=== PATIENT | female | born 1950 | race African-American/Black ===

== ENCOUNTER 2017-06-03 13:59 | Emergency (ER) | payer OTHER ==
[~2017-06-03] VITALS: Ht 162.6 cm; Wt 93.7 kg
[~2017-06-03 13:59] MED LIST: ADVAIR 250/501 DISK IH; ADVAIR HFA120 INHALA IH; ALBUTEROL2.5 MG/3 M IH; ANORO ELLIPTA1 EACH IH; ASPIR 8181 M1 PO; ASPIRIN81 M1 PO; ASPIRIN81 M2 PO; Aspirin Ec PO; BACLOFEN10 MG PO; BENTYL20 MG PO; CARAFATE1 GM PO; CEFTIN250 MG PO; CELEXA20 MG PO; CITALOPRAM HBR40 MG PO; CLONAZEPAM0.5 MG PO; CLONAZEPAM1 MG PO; DAILY VITE1 EAC1 PO; DALIRESP500 MCG PO; ENDOCET 5-3251 EACH PO; ESCITALOPRAM OX10 MG PO; ESCITALOPRAM OX20 MG PO; FERROCITE324 MG PO; FERROUS SULFAT324 M1 PO; FLONASE16 G1 BOTH NARES; FLUTICASONE BOTH NARES; GABAPENTIN300 MG PO; GABAPENTIN400 MG PO; HABITROL,NICODE14 MG PO; HYDROCHLOROTHIA25 MG PO; HYDROCODON-ACE1 EA12 PO; KLONOPIN1 MG PO; LASIX40 MG PO; LEXAPRO20 MG PO; LIDOCAINE700 MG TD; LIDODERM 5% P1 PATCH TD; LIDODERM700 MG TP; LITHIUM CARBON150 MG PO; LITHIUM CARBON300 M1 PO; MILK OF MAGN PO; MIRALAX17 GM PO; MIRTAZAPINE30 MG PO; MULTI-DAY VITA1 EACH PO; NAPROXEN500 MG PO; NEURONTIN300 MG PO; NEXIUM40 MG PO; NICODERM CQ1 EACH TD; NIZORAL 2% CREA15 GM PO; OXYCODONE HCL5 M1 PO; PANTOPRAZOLE SO40 MG PO; PERCOCET 5/31 TABLET PO; PERCOCET 7.51 TABLET PO; PRAVASTATIN SOD20 MG PO; PREDNISONE10 MG PO; PREDNISONE20 MG PO; PROTONIX40 MG PO; PROVENTIL,2.5 MG/0.5 IH; PROVENTIL,2.5 MG/3 M IH; REMERON30 M2 PO; Remove Lidoderm Patch TD; SPIRIVA1 INHALATI IH; SULINDAC150 MG PO; TEMAZEPAM15 MG PO; TIZANIDINE HCL4 M1 PO; TIZANIDINE HCL4 MG PO; TRAZODONE HCL100 MG PO; TRAZODONE HCL150 MG PO; TUDORZA PRESS400 MCG IH; VENTOLIN HFA18 GM; VENTOLIN HFA18 GM IH; ZANAFLEX4 M1 PO; ZESTORETIC,P1 TABLE2 PO; ZOLOFT25 MG PO; [UNRECOGNIZED DRUG - OTHER] BOTH NARES
[2017-06-03 16:21] LABS: HEMATOCRIT 43.2 % (36.0-46.0); MCH 26.5 PG (29.0-34.0); MCHC 30.8 G/DL (30.0-36.0); MCV 86.2 FL (83-99); RBC DIS.WIDTH-CV 14.2 % (11.8-14.6); RBC DIS.WIDTH-SD 44.8 % (39-53); RED BLOOD COUNT 5.01 M/uL (3.80-5.20); WHITE BLOOD COUNT 7.5 K/uL (4.1-10.2)
[2017-06-03 16:29] LABS: CHLORIDE 98 mEq/L (99-109); POTASSIUM 3.7 mEq/L (3.7-5.4); SODIUM 139 mEq/L (136-147)
[2017-06-03 16:31] LABS: GLUCOSE 92 mg/dL (70-99)
[2017-06-03 16:33] LABS: ANION GAP 10 MEQ/L (2-14); TOTAL BILIRUBIN 0.3 mg/dL (0.0-1.0)
[2017-06-03 16:35] LABS: ALKALINE PHOSPHATASE 86 IU/L (3-129); GFR ESTIMATE (CALCULATED) > 59 mL/min/
[2017-06-03 16:36] LABS: UREA NITROGEN (BUN) 12 mg/dL (9-23)
[2017-06-03 16:38] LABS: LIPASE 4 U/L (1.0-51.0)
[2017-06-03 16:49] LABS: ADD MIUA? NO; BILIRUBIN NEGATIVE; BLOOD NEGATIVE; COLOR STRAW ((YELLOW)); GLUCOSE (STRIP) NEGATIVE; KETONES NEGATIVE; LEUKOCYTES NEGATIVE; NITRITE NEGATIVE; PROTEIN (STRIP) NEGATIVE; SPECIFIC GRAVITY 1.008 (1.000-1.030); UROBILINOGEN 0.2 MG/DL (0.2-1.0)
[2017-06-03 17:11] LABS: PLAT.SUFFICIENCY ADEQUATE; PLATELET CLUMPS PRESENT - PLATELET COUNT APPEARS ADQ.
[2017-06-03 17:16] LABS: PLATELET COUNT UNABLE TO REPORT K/uL (156-360)
[2017-06-03] MEDS ORDERED: PREDNISONE10 MG PO (17:43)
[2017-06-03] MEDS ORDERED: FLEXERIL10 MG PO (17:43)
[2017-06-03 18:04] VITALS: BP 159/98
== END 2017-06-03 18:09 | disposition home or self-care (01) ==
LOC: EME 13:59
PROVIDERS: Physician Assistant
DX: M54.9 Dorsalgia, unspecified (principal); J44.9 Chronic obstructive pulmonary disease, unspecified; K21.9 Gastro-esophageal reflux disease without esophagitis; I10 Essential (primary) hypertension; Z85.43 Personal history of malignant neoplasm of ovary; F17.200 Nicotine dependence, unspecified, uncomplicated
CPT/HCPCS: 74176; 80053; 81003; 83690; 85027; 99281; 99284; J1100; J3010

== ENCOUNTER 2017-07-15 14:59 | Emergency (ER) | payer OTHER ==
[~2017-07-15] VITALS: Ht 162.6 cm; Wt 94.0 kg
[~2017-07-15 14:59] MED LIST changes: +FLEXERIL10 MG PO
[2017-07-15 15:43] LABS: HEMATOCRIT 42.5 % (36.0-46.0); MCHC 30.6 G/DL (30.0-36.0); MCV 88.2 FL (83-99); MEAN PLAT.VOLUME 10.8 uM^3 (9.5-12.4); PLATELET COUNT 196 K/uL (156-360); RBC DIS.WIDTH-CV 13.7 % (11.8-14.6); RBC DIS.WIDTH-SD 44.3 % (39-53); RED BLOOD COUNT 4.82 M/uL (3.80-5.20); WHITE BLOOD COUNT 8.5 K/uL (4.1-10.2)
[2017-07-15 15:52] LABS: CHLORIDE 102 mEq/L (99-109); POTASSIUM 4.1 mEq/L (3.7-5.4); SODIUM 143 mEq/L (136-147)
[2017-07-15 15:54] LABS: GLUCOSE 91 mg/dL (70-99)
[2017-07-15 15:55] LABS: ANION GAP 13 MEQ/L (2-14)
[2017-07-15 15:58] LABS: GFR ESTIMATE (CALCULATED) > 59 mL/min/; UREA NITROGEN (BUN) 12 mg/dL (9-23)
[2017-07-15 16:05] LABS: TROP-I INTERPRETATION NEGATIVE; TROPONIN-I < 0.01 ng/mL (0.0-0.30)
[2017-07-15] MEDS ORDERED: PREDNISONE20 MG PO (19:42)
[2017-07-15 20:34] VITALS: BP 119/74
== END 2017-07-15 20:36 | disposition home or self-care (01) ==
LOC: EME 14:59
DX: J44.1 Chronic obstructive pulmonary disease with (acute) exacerbation (principal); R00.2 Palpitations; Z99.81 Dependence on supplemental oxygen; F17.200 Nicotine dependence, unspecified, uncomplicated; I10 Essential (primary) hypertension; F32.9 Major depressive disorder, single episode, unspecified; K21.9 Gastro-esophageal reflux disease without esophagitis; F41.9 Anxiety disorder, unspecified; Z85.43 Personal history of malignant neoplasm of ovary
CPT/HCPCS: 71020; 71275; 80048; 84484; 85027; 85379; 93005; 94640; 99281; 99285; J7512

== ENCOUNTER 2017-07-23 13:41 | Emergency (ER) | payer OTHER ==
[~2017-07-23] VITALS: Ht 162.6 cm; Wt 94.5 kg
[2017-07-23] MEDS ORDERED: PREDNISONE20 MG PO (15:29)
[2017-07-23 16:33] VITALS: BP 130/70
== END 2017-07-23 16:33 | disposition home or self-care (01) ==
LOC: EME 13:41
DX: J44.1 Chronic obstructive pulmonary disease with (acute) exacerbation (principal); R07.89 Other chest pain; J02.9 Acute pharyngitis, unspecified; N63.0 Unspecified lump in unspecified breast; K21.9 Gastro-esophageal reflux disease without esophagitis; I10 Essential (primary) hypertension; F32.9 Major depressive disorder, single episode, unspecified; F41.9 Anxiety disorder, unspecified; Z85.43 Personal history of malignant neoplasm of ovary; Z99.81 Dependence on supplemental oxygen; F17.200 Nicotine dependence, unspecified, uncomplicated; F10.10 Alcohol abuse, uncomplicated; Z79.891 Long term (current) use of opiate analgesic
CPT/HCPCS: 94640; 99281; 99284; J7512

== ENCOUNTER 2017-08-18 21:37 | Inpatient (IN) | payer OTHER ==
[~2017-08-18] VITALS: Ht 162.6 cm; Wt 99.6 kg
[~2017-08-18 21:37] MED LIST changes: -GABAPENTIN400 MG PO
[2017-08-18 22:49] LABS: MCH 26.9 PG (29.0-34.0); MEAN PLAT.VOLUME 10.5 uM^3 (9.5-12.4); PLATELET COUNT 184 K/uL (156-360); RBC DIS.WIDTH-CV 13.9 % (11.8-14.6); RBC DIS.WIDTH-SD 44.3 % (39-53); RED BLOOD COUNT 4.83 M/uL (3.80-5.20); WHITE BLOOD COUNT 7.5 K/uL (4.1-10.2)
[2017-08-18 23:00] LABS: CHLORIDE 100 mEq/L (99-109); POTASSIUM 3.5 mEq/L (3.7-5.4); SODIUM 140 mEq/L (136-147)
[2017-08-18 23:02] LABS: GLUCOSE 102 mg/dL (70-99)
[2017-08-18 23:03] LABS: ANION GAP 9 MEQ/L (2-14)
[2017-08-18 23:06] LABS: GFR ESTIMATE (CALCULATED) 53 mL/min/
[2017-08-18 23:07] LABS: UREA NITROGEN (BUN) 13 mg/dL (9-23)
[2017-08-19] MEDS ORDERED: ASPIR 8181 M1 PO (02:32)
[2017-08-19] MEDS ORDERED: BACLOFEN10 MG PO (02:34)
[2017-08-19] MEDS ORDERED: BUSPAR10 MG PO (02:36)
[2017-08-19] MEDS ORDERED: DALIRESP500 MCG PO (02:38)
[2017-08-19] MEDS ORDERED: LASIX20 MG PO (02:40)
[2017-08-19] MEDS ORDERED: CYMBALTA60 MG PO (02:45)
[2017-08-19] MEDS ORDERED: COLACE100 MG PO (02:45)
[2017-08-19] MEDS ORDERED: NUEDEXTA 20-101 EACH PO (02:46)
[2017-08-19] MEDS ORDERED: OXYCONTIN10 MG PO (02:46)
[2017-08-19] MEDS ORDERED: FEROSUL325 MG PO (02:46)
[2017-08-19] MEDS ORDERED: TRAZODONE HCL50 MG PO ×2 (02:47→02:48)
[2017-08-19] MEDS ORDERED: VITAMIN D31000 UNIT PO (02:49)
[2017-08-19 05:17] VITALS: BP 113/60
[2017-08-19 06:44] LABS: Estimated Average Glucose 128 mg/dL (70-123); HEMOGLOBIN A1c (GLYCOHEMOGLOB) 6.1 % HGB (Below 5.7)
[2017-08-19 07:28] LABS: ALKALINE PHOSPHATASE 62 IU/L (3-129); HDL CHOLESTEROL 47 MG/DL (Desirable>=50); LDL CHOLESTEROL 91 mg/dL (Desirable<100); NON-HDL CHOLESTEROL 112 mg/dL (Desirable<160); TOTAL BILIRUBIN 0.3 MG/DL (0.0-1.0); TOTAL CHOLESTEROL 159 mg/dL (Desirable<200); TRIGLYCERIDES 104 MG/DL (Normal: <150)
[2017-08-19 07:32] VITALS: BP 111/71
[2017-08-19] MEDS ORDERED: OXYCODONE HCL10 MG PO (10:43)
[2017-08-19 11:59] VITALS: BP 133/63
[2017-08-19 12:11] LABS: ADD MIUA? NO; BILIRUBIN NEGATIVE; BLOOD NEGATIVE; COLOR YELLOW ((YELLOW)); GLUCOSE (STRIP) NEGATIVE; KETONES NEGATIVE; LEUKOCYTES NEGATIVE; NITRITE NEGATIVE; PROTEIN (STRIP) NEGATIVE; SPECIFIC GRAVITY 1.019 (1.000-1.030); UCUL ADDED? NO; UROBILINOGEN 0.2 MG/DL (0.2-1.0)
[2017-08-19 16:09] VITALS: BP 108/65
[2017-08-19 20:13] VITALS: BP 119/63
[2017-08-19 23:50] VITALS: BP 140/75
[2017-08-20 04:08] VITALS: BP 130/75
[2017-08-20 06:37] LABS: HEMATOCRIT 42.4 % (36.0-46.0); MCH 26.2 PG (29.0-34.0); MCV 87.4 FL (83-99); MEAN PLAT.VOLUME 10.9 uM^3 (9.5-12.4); PLATELET COUNT 183 K/uL (156-360); RBC DIS.WIDTH-CV 13.7 % (11.8-14.6); RBC DIS.WIDTH-SD 43.8 % (39-53); RED BLOOD COUNT 4.85 M/uL (3.80-5.20); WHITE BLOOD COUNT 5.5 K/uL (4.1-10.2)
[2017-08-20 06:52] VITALS: BP 121/69
[2017-08-20 07:52] LABS: ANION GAP 8 MEQ/L (2-14); CHLORIDE 101 MEQ/L (99-109); GFR ESTIMATE (CALCULATED) > 59 mL/min/; GLUCOSE 94 mg/dL (70-99); POTASSIUM 3.8 MEQ/L (3.7-5.4); SAMPLE HEMOLYSIS CHECK 0; SAMPLE ICTERIC CHECK 0; SAMPLE LIPEMIA CHECK 0; SODIUM 142 MEQ/L (136-147); UREA NITROGEN (BUN) 15 mg/dL (9-23)
[2017-08-20 15:13] VITALS: BP 130/69
[2017-08-21 00:05] VITALS: BP 122/59
[2017-08-21 06:55] VITALS: BP 135/64
[2017-08-21 15:16] VITALS: BP 108/59
[2017-08-21 23:43] VITALS: BP 127/77
[2017-08-22 07:02] LABS: BASOPHIL COUNT 0.1 K/uL (0-0.1); EOSINOPHIL (%) 2.4 % (0-5); EOSINOPHIL COUNT 0.2 K/uL (0-0.3); HEMATOCRIT 45.4 % (36.0-46.0); IMMATURE GRANULOCYTE (%) 0.7 % (0.0-0.7); IMMATURE GRANULOCYTE COUNT 0.1 K/uL; INSTRUMENT ABS NEUTROPHIL CT 4.7 K/uL; LYMPHOCYTE COUNT 1.4 K/uL (1.0-2.8); MCH 26.3 PG (29.0-34.0); MCHC 30.2 G/DL (30.0-36.0); MCV 87.1 FL (83-99); MEAN PLAT.VOLUME 10.8 uM^3 (9.5-12.4); MONOCYTE (%) 9.1 % (3-12); MONOCYTE COUNT 0.6 K/uL (0-0.8); NEUTROPHIL (%) 67.1 % (45-76); NEUTROPHIL COUNT 4.7 K/uL (1.8-6.4); PLATELET COUNT 208 K/uL (156-360); RBC DIS.WIDTH-CV 13.5 % (11.8-14.6); RBC DIS.WIDTH-SD 43.1 % (39-53); RED BLOOD COUNT 5.21 M/uL (3.80-5.20); WHITE BLOOD COUNT 7.1 K/uL (4.1-10.2)
[2017-08-22 07:26] LABS: ANION GAP 8 MEQ/L (2-14); CHLORIDE 98 MEQ/L (99-109); GFR ESTIMATE (CALCULATED) > 59 mL/min/; GLUCOSE 106 mg/dL (70-99); SAMPLE HEMOLYSIS CHECK 0; SAMPLE ICTERIC CHECK 0; SAMPLE LIPEMIA CHECK 0; SODIUM 140 MEQ/L (136-147); UREA NITROGEN (BUN) 21 mg/dL (9-23)
[2017-08-22 07:49] VITALS: BP 120/76
[2017-08-22 16:22] VITALS: BP 107/65
[2017-08-23 00:04] VITALS: BP 125/73
[2017-08-23 06:55] VITALS: BP 125/73
[2017-08-23] MEDS ORDERED: CLONAZEPAM0.5 MG PO (10:56)
[2017-08-23] MEDS ORDERED: SENNA PLUS TAB1 EACH PO (10:56)
[2017-08-23 23:46] LABS: PARIETAL CELL ANTIBODY+ <=20.0 Unit (<=20.0)
== END 2017-08-23 13:27 | disposition home health service (06) | DRG 92 ==
LOC: EME 21:37 → 5SOUTH 08-19 04:06 → EDOF 08-19 04:06 → ENRESERV 08-19 04:08 → 5SOUTH 08-19 05:08
PROVIDERS: Hospitalist; Internal Medicine
DX: G25.3 Myoclonus (principal); R27.8 Other lack of coordination; E86.0 Dehydration; E87.6 Hypokalemia; J44.0 Chronic obstructive pulmonary disease with (acute) lower respiratory infection; J20.9 Acute bronchitis, unspecified; J44.1 Chronic obstructive pulmonary disease with (acute) exacerbation; E78.5 Hyperlipidemia, unspecified; F31.9 Bipolar disorder, unspecified; F41.9 Anxiety disorder, unspecified; G89.29 Other chronic pain; M54.9 Dorsalgia, unspecified; I10 Essential (primary) hypertension; J96.10 Chronic respiratory failure, unspecified whether with hypoxia or hypercapnia; K21.9 Gastro-esophageal reflux disease without esophagitis; M62.838 Other muscle spasm; F17.210 Nicotine dependence, cigarettes, uncomplicated; Z99.81 Dependence on supplemental oxygen; Z23 Encounter for immunization; Z87.11 Personal history of peptic ulcer disease; Z79.891 Long term (current) use of opiate analgesic; Z85.43 Personal history of malignant neoplasm of ovary
CPT/HCPCS: 70450; 70496; 70498; 70551; 71020; 72141; 80048; 80061; 80076; 81003; 82378; 83036; 83516 90; 84443; 85025; 85027; 86255 90; 86301 90; 86304; 90686; 92523 GN; 93005; 94640; 94640 76; 94799; 99202; 99281; 99285; J1650

== ENCOUNTER 2017-11-10 12:16 | Inpatient (IN) | payer OTHER ==
[~2017-11-10] VITALS: Ht 162.6 cm; Wt 79.0 kg
[~2017-11-10 12:16] MED LIST changes: +BUSPAR10 MG PO; +COLACE100 MG PO; +CYMBALTA60 MG PO; +FEROSUL325 MG PO; +LASIX20 MG PO; +NUEDEXTA 20-101 EACH PO; +OXYCODONE HCL10 MG PO; +OXYCONTIN10 MG PO; +SENNA PLUS TAB1 EACH PO; +TRAZODONE HCL50 MG PO; +VITAMIN D31000 UNIT PO
[2017-11-10 13:22] LABS: HEMATOCRIT 40.9 % (36.0-46.0); HEMOGLOBIN 12.8 G/DL (11.9-15.5); MCH 25.5 PG (29.0-34.0); MCHC 31.3 G/DL (30.0-36.0); MCV 81.6 FL (83-99); RBC DIS.WIDTH-SD 38.7 % (39-53); RED BLOOD COUNT 5.01 M/uL (3.80-5.20); WHITE BLOOD COUNT 6.5 K/uL (4.1-10.2)
[2017-11-10 13:32] LABS: CHLORIDE 93 mEq/L (99-109); POTASSIUM 3.4 mEq/L (3.7-5.4); SODIUM 135 mEq/L (136-147)
[2017-11-10 13:33] LABS: GLUCOSE 104 mg/dL (70-99)
[2017-11-10 13:37] LABS: CREATININE 0.9 mg/dL (0.6-1.3); GFR ESTIMATE (CALCULATED) > 59 mL/min/
[2017-11-10 13:38] LABS: UREA NITROGEN (BUN) 7 mg/dL (9-23)
[2017-11-10 13:44] LABS: TROP-I INTERPRETATION NEGATIVE; TROPONIN-I < 0.01 ng/mL (0.0-0.30)
[2017-11-10 14:26] LABS: PLATELET CLUMPS PRESENT - PLATELET COUNT APPEARS ADQ.; PLATELET COUNT UNABLE TO REPORT K/uL (156-360)
[2017-11-10] MEDS ORDERED: BUSPAR15 MG PO (18:27)
[2017-11-10] MEDS ORDERED: DESYREL 150 MG150 MG PO (18:28)
[2017-11-10] MEDS ORDERED: ATIVAN0.5 MG PO (18:30)
[2017-11-10] MEDS ORDERED: MIRAPEX0.25 MG PO (18:31)
[2017-11-10] MEDS ORDERED: SENNA8.6 MG PO (18:31)
[2017-11-10] MEDS ORDERED: DALIRESP500 MCG PO (18:31)
[2017-11-10] MEDS ORDERED: LIORESAL10 MG PO (18:32)
[2017-11-10] MEDS ORDERED: CLINORIL150 MG PO (18:32)
[2017-11-10] MEDS ORDERED: ANORO ELLIPTA1 EACH IH (18:32)
[2017-11-10 20:48] VITALS: BP 166/80
[2017-11-11] VITALS (7 sets, daily range): BP systolic 112–165; BP diastolic 54–81
[2017-11-11 07:07] LABS: HEMATOCRIT 39.8 % (36.0-46.0); HEMOGLOBIN 12.2 G/DL (11.9-15.5); MCH 25.1 PG (29.0-34.0); MCHC 30.7 G/DL (30.0-36.0); MCV 81.9 FL (83-99); RBC DIS.WIDTH-CV 12.9 % (11.8-14.6); RBC DIS.WIDTH-SD 38.8 % (39-53); RED BLOOD COUNT 4.86 M/uL (3.80-5.20); WHITE BLOOD COUNT 5.6 K/uL (4.1-10.2)
[2017-11-11 07:17] LABS: PLATELET COUNT 182 K/uL (156-360)
[2017-11-11 07:29] LABS: CHLORIDE 93 MEQ/L (99-109); CREATININE 0.8 MG/DL (0.6-1.3); GFR ESTIMATE (CALCULATED) > 59 mL/min/; GLUCOSE 137 mg/dL (70-99); POTASSIUM 3.9 MEQ/L (3.7-5.4); SODIUM 136 MEQ/L (136-147); UREA NITROGEN (BUN) 10 mg/dL (9-23)
[2017-11-12 04:00] VITALS: BP 112/66
[2017-11-12 06:38] LABS: BASOPHIL (%) 0.1 % (0-1); EOSINOPHIL (%) 0 % (0-5); HEMATOCRIT 38.9 % (36.0-46.0); HEMOGLOBIN 11.9 G/DL (11.9-15.5); IMMATURE GRANULOCYTE (%) 0.3 % (0.0-0.7); LYMPHOCYTE (%) 4.8 % (15-42); LYMPHOCYTE COUNT 0.4 K/uL (1.0-2.8); MCH 25.2 PG (29.0-34.0); MCHC 30.6 G/DL (30.0-36.0); MCV 82.4 FL (83-99); MONOCYTE (%) 5.4 % (3-12); MONOCYTE COUNT 0.5 K/uL (0-0.8); NEUTROPHIL (%) 89.4 % (45-76); NEUTROPHIL COUNT 7.8 K/uL (1.8-6.4); PLATELET COUNT 198 K/uL (156-360); RBC DIS.WIDTH-CV 12.9 % (11.8-14.6); RBC DIS.WIDTH-SD 39.1 % (39-53); RED BLOOD COUNT 4.72 M/uL (3.80-5.20); WHITE BLOOD COUNT 8.7 K/uL (4.1-10.2)
[2017-11-12 07:10] LABS: CHLORIDE 90 MEQ/L (99-109); CREATININE 0.9 MG/DL (0.6-1.3); GFR ESTIMATE (CALCULATED) > 59 mL/min/; GLUCOSE 166 mg/dL (70-99); POTASSIUM 3.7 MEQ/L (3.7-5.4); SODIUM 135 MEQ/L (136-147); UREA NITROGEN (BUN) 20 mg/dL (9-23)
[2017-11-12 08:06] VITALS: BP 137/82
[2017-11-12 08:09] VITALS: BP 137/82
[2017-11-12 13:03] VITALS: BP 143/81
[2017-11-12 16:35] VITALS: BP 132/83
[2017-11-12 23:59] VITALS: BP 108/58
[2017-11-13 06:47] LABS: BASOPHIL (%) 0.1 % (0-1); EOSINOPHIL (%) 0 % (0-5); HEMATOCRIT 39.9 % (36.0-46.0); HEMOGLOBIN 12.1 G/DL (11.9-15.5); IMMATURE GRANULOCYTE (%) 0.6 % (0.0-0.7); LYMPHOCYTE (%) 9.6 % (15-42); LYMPHOCYTE COUNT 0.7 K/uL (1.0-2.8); MCH 25.5 PG (29.0-34.0); MCHC 30.3 G/DL (30.0-36.0); MONOCYTE (%) 5.8 % (3-12); MONOCYTE COUNT 0.4 K/uL (0-0.8); NEUTROPHIL (%) 83.9 % (45-76); NEUTROPHIL COUNT 5.8 K/uL (1.8-6.4); PLATELET COUNT 209 K/uL (156-360); RBC DIS.WIDTH-CV 13.1 % (11.8-14.6); RBC DIS.WIDTH-SD 39.9 % (39-53); RED BLOOD COUNT 4.75 M/uL (3.80-5.20); WHITE BLOOD COUNT 6.9 K/uL (4.1-10.2)
[2017-11-13 07:04] LABS: CHLORIDE 97 MEQ/L (99-109); CREATININE 0.9 MG/DL (0.6-1.3); GFR ESTIMATE (CALCULATED) > 59 mL/min/; GLUCOSE 126 mg/dL (70-99); POTASSIUM 4.2 MEQ/L (3.7-5.4); SODIUM 140 MEQ/L (136-147); UREA NITROGEN (BUN) 20 mg/dL (9-23)
[2017-11-13 08:11] VITALS: BP 122/68
[2017-11-13 16:36] VITALS: BP 138/72
[2017-11-14] VITALS: BP 138/82
[2017-11-14 06:26] LABS: HEMATOCRIT 40.9 % (36.0-46.0); HEMOGLOBIN 12.5 G/DL (11.9-15.5); MCH 25.4 PG (29.0-34.0); MCHC 30.6 G/DL (30.0-36.0); MCV 83.1 FL (83-99); PLATELET COUNT 214 K/uL (156-360); RBC DIS.WIDTH-CV 13.1 % (11.8-14.6); RBC DIS.WIDTH-SD 39.4 % (39-53); RED BLOOD COUNT 4.92 M/uL (3.80-5.20); WHITE BLOOD COUNT 6.2 K/uL (4.1-10.2)
[2017-11-14 06:37] LABS: CHLORIDE 98 MEQ/L (99-109); GFR ESTIMATE (CALCULATED) > 59 mL/min/; GLUCOSE 133 mg/dL (70-99); POTASSIUM 4.4 MEQ/L (3.7-5.4); SODIUM 140 MEQ/L (136-147); UREA NITROGEN (BUN) 19 mg/dL (9-23)
[2017-11-14 07:16] LABS: BASOPHIL (%) 0.3 % (0-1); EOSINOPHIL (%) 0.2 % (0-5); HEMATOLOGY COMMENT 1 SMEAR COMPATIBLE; IMMATURE GRANULOCYTE (%) 1.5 % (0.0-0.7); LYMPHOCYTE (%) 23.5 % (15-42); LYMPHOCYTE COUNT 1.5 K/uL (1.0-2.8); MONOCYTE (%) 7.8 % (3-12); MONOCYTE COUNT 0.5 K/uL (0-0.8); NEUTROPHIL (%) 66.7 % (45-76); NEUTROPHIL COUNT 4.1 K/uL (1.8-6.4)
[2017-11-14 08:00] VITALS: BP 134/76
[2017-11-14 16:00] VITALS: BP 125/67
[2017-11-15 00:44] VITALS: BP 128/78
[2017-11-15 06:39] LABS: HEMATOCRIT 39.2 % (36.0-46.0); HEMOGLOBIN 11.7 G/DL (11.9-15.5); MCH 24.7 PG (29.0-34.0); MCHC 29.8 G/DL (30.0-36.0); MCV 82.7 FL (83-99); PLATELET COUNT 223 K/uL (156-360); RBC DIS.WIDTH-CV 12.8 % (11.8-14.6); RED BLOOD COUNT 4.74 M/uL (3.80-5.20); WHITE BLOOD COUNT 7.4 K/uL (4.1-10.2)
[2017-11-15 07:03] LABS: CHLORIDE 98 MEQ/L (99-109); CREATININE 0.9 MG/DL (0.6-1.3); GFR ESTIMATE (CALCULATED) > 59 mL/min/; GLUCOSE 142 mg/dL (70-99); POTASSIUM 4.4 MEQ/L (3.7-5.4); SODIUM 141 MEQ/L (136-147); UREA NITROGEN (BUN) 17 mg/dL (9-23)
[2017-11-15 07:08] LABS: BASOPHIL (%) 0.4 % (0-1); EOSINOPHIL (%) 0 % (0-5); IMMATURE GRANULOCYTE (%) 1.7 % (0.0-0.7); LYMPHOCYTE (%) 22.4 % (15-42); LYMPHOCYTE COUNT 1.7 K/uL (1.0-2.8); MONOCYTE (%) 7.4 % (3-12); MONOCYTE COUNT 0.6 K/uL (0-0.8); NEUTROPHIL (%) 68.1 % (45-76); NEUTROPHIL COUNT 5.1 K/uL (1.8-6.4); PLAT.SUFFICIENCY ADEQUATE
[2017-11-15 08:35] VITALS: BP 133/72
[2017-11-16 00:21] VITALS: BP 115/60
[2017-11-16 06:34] LABS: CHLORIDE 98 MEQ/L (99-109); CREATININE 0.9 MG/DL (0.6-1.3); GFR ESTIMATE (CALCULATED) > 59 mL/min/; GLUCOSE 130 mg/dL (70-99); POTASSIUM 3.9 MEQ/L (3.7-5.4); SODIUM 141 MEQ/L (136-147); UREA NITROGEN (BUN) 16 mg/dL (9-23)
[2017-11-16 08:11] VITALS: BP 118/70
[2017-11-16] MEDS ORDERED: DUONEB 2.5-0.5 M3 ML AEROSOL (11:53)
[2017-11-16] MEDS ORDERED: PREDNISONE10 MG PO (11:53)
[2017-11-16] MEDS ORDERED: CEFDINIR300 MG PO (11:53)
== END 2017-11-16 16:10 | disposition home or self-care (01) | DRG 190 ==
LOC: EME 12:16 → 5SOUTH 18:24 → EDOF 18:24 → ENRESERV 18:27 → 5SOUTH 19:22
PROVIDERS: Emergency Medicine; Hospitalist; Internal Medicine
DX: J44.0 Chronic obstructive pulmonary disease with (acute) lower respiratory infection (principal); J96.21 Acute and chronic respiratory failure with hypoxia; J10.1 Influenza due to other identified influenza virus with other respiratory manifestations; J44.1 Chronic obstructive pulmonary disease with (acute) exacerbation; J20.9 Acute bronchitis, unspecified; F31.9 Bipolar disorder, unspecified; G89.4 Chronic pain syndrome; E78.5 Hyperlipidemia, unspecified; Z85.43 Personal history of malignant neoplasm of ovary; Z92.3 Personal history of irradiation; Z99.81 Dependence on supplemental oxygen; K21.9 Gastro-esophageal reflux disease without esophagitis; F17.200 Nicotine dependence, unspecified, uncomplicated; E66.9 Obesity, unspecified; Z68.29 Body mass index [BMI] 29.0-29.9, adult; I10 Essential (primary) hypertension; K27.9 Peptic ulcer, site unspecified, unspecified as acute or chronic, without hemorrhage or perforation
CPT/HCPCS: 71046; 80048; 84484; 85025; 85027; 87502; 93005; 94640; 94640 76; 94760; 94799; 99202; 99281; 99285; J0696; J1650; J2920; J2930; J7030; J7512